=== PATIENT | female | born 1985 | race Caucasian/White ===

== ENCOUNTER 2019-02-12 05:56 | Inpatient (IN) ==
[2019-02-12] MEDS ORDERED: RINGER'S SOLUTION,LACTATED 1,000 ML IV PRN (06:09)
[2019-02-12] MEDS ORDERED: ceFAZolin SODIUM/DEXTROSE,ISO 2 GM/50 ML BAG IV ONE (06:09)
[2019-02-12] MEDS ORDERED: OXYTOCIN 20 UNITS in RINGER'S SOLUTION,LACTATED 1,000 ML IV ONE (06:09)
[2019-02-12 07:14] LABS: Cocaine Ur Negative (NEGATIVE); Urine Barbiturate Negative (NEGATIVE); Urine Benzodiazepines Negative (NEGATIVE); Urine Opiates Negative (NEGATIVE); Urine PCP Negative (NEGATIVE); Urine THC Negative (NEGATIVE)
[2019-02-12] MEDS: RINGER'S SOLUTION,LACTATED 1,000 ML IV PRN ×2 (07:27→10:08)
--- NOTE | 2019-02-12 09:17 | ANES ---
Anesthesia Pre Procedure Eval Vitals/Labs: Last Vital Signs Temp 36.6 C 02/12/19 06:05 Pulse 88 02/12/19 06:05 Resp 14 02/12/19 06:05 BP 116/81 02/12/19 06:05 Pulse Ox 99 02/12/19 06:05 HOME MEDICATIONS vitamins no.121-iron 28 mg-folic acid 800 mcg tablet 1 tab PO HS tab 07/27/18 [Last Taken 02/11/19] ferrous sulfate 325 mg (65 mg iron) tablet 325 mg PO DAILY 01/12/19 [Last Taken 02/11/19] Allergies/Adverse Reactions: Allergies Allergy/AdvReac Type Severity Reaction Status Date / Time No Known Allergies Allergy Verified 02/12/19 06:09 - Planned Procedure Planned Procedure: Repeat Section, bilateral salpingectomy, Medication List Reviewed:: Yes Allergies Verified: Yes Medical History (Updated 07/27/18 @ 11:22 by Craig Montalvo DO) History of delivery, currently (Chronic) History of delivery (Chronic) 33wks PPROM/PTD Abnormal Pap smear of cervix Onset Date: ~2007 Irritable bowel syndrome Onset Date: Unknown Kidney stone Onset Date: 05/07/15 Body piercing Onset Date: Unknown Hernia Onset Date: Unknown rt inguinal delivery (maternal condition) Onset Date: ~2014 @ 33wks w/PROM @ 29wks UTI (urinary tract infection) Onset Date: Unknown Surgical History (Updated 07/27/18 @ 11:21 by Craig Montalvo DO) Previous section (Chronic) x2 H/O colposcopy with cervical biopsy Onset Date: ~2007 negative H/O hernia repair Onset Date: ~1989 H/O knee surgery Onset Date: ~2000 left knee Previous section Onset Date: 11/07/11 2012-Nonreassuring heart tones & failure to progress. 2014-Failed . Family History (Updated 07/27/18 @ 09:29 by Marlon Sahni RN) Mother Cancer breast cancer Father Alive and well - Family Anesthesia History Family History:: no untoward family reactions to anesthesia, no familial bleeding tendencies, no family history of clotting disorders, no family history of premature - Airway/Neck/Teeth Within Normal Limits:: Yes Teeth Condition: intact Mallampatti Score: 2 Thyromental (T-M) distance: > 6 cm Mandibulo Hyoid distance: > 3 cm - Respiratory Respiratory Physical: lungs clear - Cardiovascular Tolerate Activity: Good Heart Sounds: S1 & S2, Regular - Anesthesia Assessment and Plan ASA Class: PS, II Anesthesia Type Plan: Block - Bilateral ultrasound guided TAP blocks for postop analgesia, Spinal
--- NOTE | 2019-02-12 11:56 | ANES ---
Post Anesthesia Discharge - Transfer of Care Transfer of Care handoff given to nurse: Yes - Discharge from PACU Discharge from PACU when meets criteria: Yes - Discharge to ASU Discharge to ASU-no complications/pt stable: Yes
--- NOTE | 2019-02-12 12:00 | ANES ---
Anesthesia Procedure Note Procedure Note: ANESTHESIA PROCEDURE NOTE Date of Procedure: 11/12/2018. Time of procedure: 1200. Performed by: Ananth Emerson CRNA [employer] Mission Helicopter Aircrewman: None. Preprocedure diagnosis: Repeat . Post procedure diagnosis: Same. Procedure: Bilateral ultrasound-guided transversus abdominis plane block for postop analgesia. Indications: The patient is a 33-year-old female post section. Findings: See below. Details of the procedure: ChloraPrep was used on the patient's abdomen and the procedure was performed under sterile technique. The right abdominal fascial layer between the internal oblique muscle and the transversus abdominis muscles was identified under ultrasound guidance. A 21-gauge 4 inch block needle was inserted under ultrasound guidance to the target fascial plane. 15 mL's of 0.5% bupivacaine plus epinephrine 1:200,000 was injected after negative aspiration for blood. The needle was removed intact and the procedure was then repeated at the left side. No complications were noted. The images were retained in the hospital medical database. EBL: Minimal. Fluids: N/A. Specimen: N/A. Post procedure condition: The patient tolerated the procedure well. No complications were noted. Thank you for this consultation. Ananth Emerson CRNA
--- NOTE | 2019-02-12 12:07 | OR ---
Operative Report - Dictated Report Narrative: Indication: 33-year old 3 para 2 with prior section x2 presents for repeat low transverse section and sterilization by bilateral salpingectomy. status: Planned Pre Operative Diagnosis: 39-1/7-week intrauterine . Prior section x2. Desires permanent sterilization via bilateral salpingectomy Post Operative Diagnosis: Same. Omental, uterine, and tubo-ovarian adhesions. Procedure: Repeat low transverse section. Bilateral salpingectomy. Lysis of omental, uterine, and tubo-ovarian adhesions. Abdominal scar revision -16cm Surgeon: Anjel Montalvo DO Ceramic Maker Demonstrator: OR Staff Anesthesia: Spinal, TAP block Estimated Blood Loss: 600 mL Urine Output: 100 ml clear urine Fluids Replacement: 2700 mL of crystalloid Drains: Barron to gravity Surgical Complications: None Specimens: Placenta to freezer Findings: Female born at 1010 on 02/12/2020 with Apgars 8 and 9, weighing 3150 g in cephalic presentation. Nuchal cord x1. Omental adhesions to the anterior abdominal wall and upper bladder fat. Uterine band adhesions to the anterior abdominal wall on the left side. Tubo-ovarian adhesions bilaterally with the fimbriated end of the left to adherent to the left pelvic sidewall. Technique: The patient was taken to the operating room and placed in dorsal supine position with a left lateral tilt. After adequate spinal anesthesia, barron catheter inserted, SCDs placed, and 2 g of Ancef given preoperatively, the previous scar was excised in an elliptical fashion and the abdominal cavity was entered using sharp and blunt dissection. Two rolled laps were placed in the pericolic gutters on either side of the uterus. Omental and uterine band adhesions were taken down with the monopolar cautery to allow visualization of the uterus. A bladder flap was created sharply using Metzenbaum scissors and blunt traction to allow visualization of the lower uterine segment. A transverse incision was made in the lower uterine segment and extended laterally and upwardly with digital traction. Clear fluid was noted upon amniotomy. Nuchal cord was reduced with delivery of the head. The infant was delivered easily. The cord was clamped and cut and infant was handed off to awaiting composite engineer. The placenta was allowed to deliver spontaneously. The uterus was cleared of clot and debris. Uterine incision was closed with 0 Vicryl using a running stitch. The uterine wall defect created from releasing the uterine band adhesion was re-pared with 0 Vicryl suture in a running stitch. Several 0 Vicryl [id number] sutures were placed to control bleeding. A piece of Surgicel was placed over the uterine wall defect in an attempt to prevent future adhesions. The rolled laps were removed from the abdominal cavitiy. The right fallopian tube was identified and found out to the fimbriated end using bipolar graspers the tube was transected approximately 2 cm from the cornual region and the mesosalpinx was then coagulated with the bipolar cautery along its entire length. Metzenbaum scissors were used to excise tubo-ovarian adhesions to free the tube from the ovary and the tube was removed and sent to pathology. The exact same was done on the patient's left side. However because of the fimbriated adherent to the pelvic sidewall, a small portion of the fimbria was left behind. Small bleeder on the right mesosalpinx was controlled with a Ariane stitch, using 3-0 Vicryl. The peritoneum was closed with a running 3-0 Monocryl. The same suture was used to approximate the rectus and pyramidalis muscles. The fascia was closed with a running 0 Vicryl. The subcutaneous layer was closed with a running 3-0 Vicryl. The same suture was used to approximate the subdermal layer. The skin was closed with a running 4-0 Monocryl and Dermabond. Sponge, lap, needle, and instrument count were correct x 2. Approximately 20 additional minutes were used in lysis of adhesions and repair of uterine wall defect. Disposition: To post anesthesia care unit in good condition History for MU History for Definition: * The number of deliveries resulting in a live the patient experienced prior to current hospitalization * The previous delivery of live twins or any live multiple gestation is considered one live event. *If primagravida or nulliparous is documented select zero for the number of previous live births. Live Events: Live Events: 2
[2019-02-12] MEDS ORDERED: HYDROmorphone HCL 2 MG/ML VIAL IV ONE (12:08)
[2019-02-12] MEDS ORDERED: IBUPROFEN 800 MG TABLET PO PRN (12:47)
[2019-02-12] MEDS ORDERED: BISACODYL 10 MG SUPP.RECT RC PRN (12:47)
[2019-02-12] MEDS ORDERED: ONDANSETRON HCL/PF 2 MG/ML VIAL IV PRN (12:47)
[2019-02-12] MEDS: IBUPROFEN 800 MG TABLET PO PRN ×2 (13:56→21:12)
[2019-02-12] MEDS: oxyCODONE HCL/ACETAMINOPHEN 1 TAB TABLET PO PRN ×3 (13:57→21:12)
--- NOTE | 2019-02-12 14:12 | ANES ---
Post Anesthesia Assessment - Vital Signs Vitals: Last Vital Signs Temp 36 C 02/12/19 13:00 Pulse 74 02/12/19 13:50 Resp 14 02/12/19 13:50 BP 122/57 02/12/19 13:50 Pulse Ox 100 02/12/19 13:50 Airway Patency: Normal - Mental Status Level Of Consciousness: Awake - Pain Level Pain Score: 5 - N/V Assessment Nausea/Vomiting Presence: None Dehydration:: No
[2019-02-12] MEDS: SIMETHICONE 80 MG TAB.CHEW PO PRN (19:37)
[2019-02-12] MEDS: DOCUSATE SODIUM 100 MG CAPSULE PO SCH (21:12)
[2019-02-13] MEDS: oxyCODONE HCL/ACETAMINOPHEN 1 TAB TABLET PO PRN ×5 (00:52→23:59)
[2019-02-13] MEDS: IBUPROFEN 800 MG TABLET PO PRN ×4 (03:53→23:59)
[2019-02-13] MEDS: DOCUSATE SODIUM 100 MG CAPSULE PO SCH ×3 (07:58→21:01)
[2019-02-13] MEDS: SENNOSIDES 8.6 MG TABLET PO PRN ×2 (10:00→21:01)
--- NOTE | 2019-02-13 10:09 | PN ---
Subjective - Date and Time Seen Date: 02/13/19 Time: 10:05 Objective - Vitals Vitals: Last Vital Signs Temp 35.8 C L 02/13/19 08:00 Pulse 74 02/13/19 08:00 Resp 14 02/13/19 08:00 BP 123/73 02/13/19 08:00 Pulse Ox 96 02/13/19 08:00 Patient having some belching but no flatus yet. Tolerating regular diet. Ambulating without difficulty to bathroom. Pain well controlled.] Lochia wnl. Abdomen - soft, appropriately tender, mild distention, bowel sounds present Incision - [clean, dry, intact, approximately 1 cm of mild erythema above and below incision line ] Uterus - firm, at umbilicus -[1] No calf tenderness Impression: Post op day #1 s/p repeat section. Bilateral salpingectomy. Lysis of adhesions. Abdominal scar revision. Probable partial ileus. Plan: Continue routine post-operative/ care. Encourage increased p.o. hydration, ambulation, stool softeners, and minimum use of pain medications. Cauti Physician Documentation - Urinary Catheter Management Urethral ([place]) Date of Insertion: 02/12/19 Time of Insertion: 09:53
[2019-02-13] MEDS: SIMETHICONE 80 MG TAB.CHEW PO PRN ×3 (11:29→21:01)
[2019-02-14] MEDS: SENNOSIDES 8.6 MG TABLET PO PRN ×2 (08:07→20:06)
[2019-02-14] MEDS: IBUPROFEN 800 MG TABLET PO PRN ×3 (08:07→21:46)
[2019-02-14] MEDS: DOCUSATE SODIUM 100 MG CAPSULE PO SCH ×2 (08:07→20:05)
[2019-02-14] MEDS: SIMETHICONE 80 MG TAB.CHEW PO PRN ×3 (08:07→20:05)
--- NOTE | 2019-02-14 09:23 | PN ---
Subjective - Date and Time Seen Date: 02/14/19 Time: 09:22 Objective - Vitals Vitals: Last Vital Signs Temp 37.2 C 02/14/19 06:45 Pulse 90 02/14/19 06:45 Resp 14 02/14/19 06:45 BP 124/72 02/14/19 06:45 Pulse Ox 95 02/14/19 06:45 Patient had a rough night due to gas and bloating. Feeling much better now that bowels are working. Ambulating well. Tolerating regular diet. Pain well controlled. Lochia wnl. Abdomen - soft, appropriately tender Incision -clean, dry, intact. Erythema around the incision resolving. Uterus - firm, at umbilicus -2 no calf tenderness Impression: Post op day #2 s/p repeat section. Bilateral salpingectomy. Abdominal scar revision. Plan: Continue routine post-operative/ care Cauti Physician Documentation - Urinary Catheter Management Urethral ([place]) Date of Insertion: 02/12/19 Time of Insertion: 09:53
[2019-02-15] MEDS: SENNOSIDES 8.6 MG TABLET PO PRN (08:22)
[2019-02-15] MEDS: DOCUSATE SODIUM 100 MG CAPSULE PO SCH (08:22)
[2019-02-15] MEDS: IBUPROFEN 800 MG TABLET PO PRN (08:23)
[2019-02-15 08:42] VITALS: BP 116/80
[2019-02-15] MEDS: SIMETHICONE 80 MG TAB.CHEW PO PRN (08:50)
--- NOTE | 2019-02-15 09:02 | PN ---
Subjective - Date and Time Seen Date: 02/15/19 Time: 09:01 Objective - Vitals Vitals: Last Vital Signs Temp 36.5 C 02/15/19 08:41 Pulse 96 02/15/19 08:41 Resp 18 02/15/19 08:41 BP 116/80 02/15/19 08:41 Pulse Ox 97 02/15/19 08:41 Patient denies complaints. Ambulating without difficulty. Tolerating regular diet. Pain well controlled. Lochia wnl. Abdomen - soft, appropriately tender Incision -clean, dry, intact uterus - firm, at umbilicus -3 no calf tenderness Impression: Post op day #3 s/p repeat section. Bilateral salpingectomy. Abdominal scar revision. Lysis of adhesions. Plan: Routine discharge instructions Cauti Physician Documentation - Urinary Catheter Management Urethral ([place]) Date of Insertion: 02/12/19 Time of Insertion: 09:53
== END 2019-02-15 11:57 | disposition home or self-care (01) | DRG 784 ==
LOC: OB 05:56
PROVIDERS: ADMIT Obstetrics & Gynecology; ATTEND Obstetrics & Gynecology
CPT/HCPCS: 59025; 80307; 88302; J2405